=== PATIENT | female | born 1955 | race Caucasian/White ===

== ENCOUNTER 2020-10-24 11:47 | Outpatient (REF) | payer OTHER, SELFPAY ==
[2020-10-24 13:03] LABS: MANUAL DIFF FLAG NO
[2020-10-24 13:11] LABS: Basophils Absolute Auto 0.1 X10*3/uL (0.0-0.2); Basophils Percent Auto 0.6 % (0-2); Eosinophils Absolute Auto 0.1 X10*3/uL (0.0-0.4); Eosinophils Percent Auto 1.2 % (0-4); Hematocrit 45.7 % (37-47); Hemoglobin 14.8 g/dl (12.0-16.0); Imm Gran Abs Auto 0.04 X10*3/uL (0.00-0.03); Imm Gran Pct Auto 0.5 % (0.0-0.4); Lymphocytes Percent Auto 23.8 % (20-40); Mean Corpuscular HGB Conc 32.4 g/dl (31.0-35.0); Mean Corpuscular Hemoglobin 29.7 pg (27.0-33.0); Mean Corpuscular Volume 91.6 fL (80-98); Mean Platelet Volume 10.9 fL (9.4-12.3); Monocytes Absolute Auto 0.7 X10*3/uL (0.1-1.2); Monocytes Percent Auto 8.2 % (2-11); Neutrophils Absolute Auto 5.6 X10*3/uL (2.0-8.3); Neutrophils Percent Auto 65.7 % (45-73); Platelet Count 216 X10*3/uL (160-400); Red Blood Count 4.99 X10*6/uL (4.20-5.50); Red Cell Distribution Width 12.1 % (11.0-16.0); White Blood Count 8.5 X10*3/uL (4.8-10.8)
[2020-10-24 13:28] LABS: Alanine Aminotransferase 24 U/L (0-31); Albumin Level 4.8 g/dL (3.5-5.0); Alkaline Phosphatase 71 U/L (39-117); Anion Gap 16 (12-20); Aspartate Amino Transferase 32 U/L (5-31); Bilirubin Total 0.7 mg/dL (0.0-1.0); Blood Urea Nitrogen 12 mg/dL (9-16); C Reactive Protein 0.43 mg/dL (< or = 0.50); Carbon Dioxide 29 mmol/L (22-29); Chloride 101 mmol/L (96-108); Estimated Glomerular Filt Rate > 60; Glucose Random 108 mg/dL (60-115); Potassium 4.2 mmol/L (3.3-5.1); Sodium 142 mmol/L (135-145); Total Protein 7.4 g/dL (6.5-8.0)
[2020-10-25 17:32] LABS: Lyme Abs Screen <0.90 index
== END 2020-10-24 11:48 | disposition home or self-care (01) ==
LOC: HO.LAB 11:47
PROVIDERS: PCP Internal Medicine; Visit Provider Internal Medicine
DX: R21 Rash and other nonspecific skin eruption (principal); T14.8XXA Other injury of unspecified body region, initial encounter
CPT/HCPCS: 36415; 80053; 85025; 86140; 86617; 86618

== ENCOUNTER 2024-11-07 13:01 | Outpatient (AMB) | payer MEDICARE, OTHER, SELFPAY ==
--- NOTE | 2024-11-07 13:04 | A.OFFPC_ITS ---
Vital Signs 11/07/24 13:11 11/11/24 17:19 Height 5 ft 6 in Weight 93.894 kg BMI 33.4 BP 200/92 H 160/90 H Respiration 16 Pulse 63 Pulse Source Pulse Oximeter Temp 97.7 F Temp Source Temporal Artery Scan Pulse Oximetry (%) 99 Oxygen Delivery Method Room Air Intake Visit Reasons: Routine / Dr Wiseman - see comments Engine Assembler Required: No Accompanied by: Spouse Allergies No Known Allergies Allergy (Verified 11/07/24 13:05) Tobacco use date assessed: 11/07/24 Fall risk assessment: 1 Fall in past year Last assessed Fall Risk: 11/07/24 Dental Screening Dental Screen Date: 11/07/24 Did you have a dental visit in the last 12 months?: Yes Did you have a dental problem in the last 6 months where you did not have access to dental care?: No Was dental information given to patient?: No HPI HPI Comments History of Present Illness Details HTN- compliant with HCTZ and metoprolol. Initial BP 200/92. No longer checking at home. IBS-C- flares several times per year. Occ gets feve. Vomiting helps. Associated with diffuse abd pain. Does occasionally get diarrhea. Will last for several years. Follows with Dr. Zambrano. Due for colonoscopy History of disc herniation L4-L5. Did have radicular symptoms. Occ low back pain and will rest. No surgery, went to physical therapy. Does not wish to return at this time. Concerns: Fullness in her ears with decreased hearing. History of similar with prior pcp and reports symptoms were improved with change in season. No pain. Occasional vertigo relatively infrequent. Change of position. Feeling of off balance Health Maintenance: Last pap 2023. Dr Zhane Ahn UTD Due for colo ROS: General: No fevers, malaise, unintentional weight loss HEENT: No blurred vision, diplopia. No sore throat, nasal congestion, rhinorrhea, sinus pain, ear pain Cardiovascular: No chest pain, palpitations, or leg edema Respiratory: No shortness of breath, wheezing, cough GI: No abdominal pain, nausea, vomiting, diarrhea, constipation, melena, hematochezia : No dysuria, hematuria, increased urinary frequency, decreased urinary output MSK: No myalgia, back pain Neuro: No headaches, weakness, paresthesias Skin: No rashes or lesions EXAM: Constitutional - Awake and Alert, No apparent distress Eyes - PERRL Ears - cerumen impaction Cardiovascular - S1S2, RRR, No edema Respiratory - Normal lung expansion, Normal respiratory effort, No respiratory distress, CTA bilaterally Extremities - no calf tenderness bilaterally, no swelling Skin - Warm/Dry Neurological - Alert & oriented x3 Psychological - Appropriate affect [facility] Medical History (Updated 11/11/24 @ 17:19 by TIMO Parish) Irritable bowel syndrome with constipation HTN (hypertension) HLD (hyperlipidemia) Basal cell carcinoma Surgical History (Updated 11/07/24 @ 13:26 by TIMO Parish) S/P emergency section Status post skin graft Social History Housing: House Patient Tobacco Use Status: Never used Tobacco e-Cigarette/Vaping Use: Never Used service: No Current occupational status: retired Cognitive needs: No Hearing needs: No Vision needs: Yes (Reading) Questionnaire PHQ-9 Over the last 2 weeks, how often have you been bothered by any of the following problems? 1. Little interest or pleasure in doing things: not at all 2. Feeling down, depressed, or hopeless: not at all 3. Trouble falling or staying asleep, or sleeping too much: not at all 4. Feeling tired or having little energy: not at all 5. Poor appetite or overeating: not at all 6. Feeling bad about yourself - or that you are a failure or have let yourself or your family down: not at all 7. Trouble concentrating on things, such as reading the newspaper or watching television: not at all 8. Moving or speaking so slowly that other people could have noticed. Or the opposite - being so fidgety or restless that you have been moving around a lot more than usual: not at all 9. Thoughts that you would be better off or of hurting yourself in some way: not at all Total score: 0 Source: Developed by Drs. Ralph Fox, Elida Loja, Domingo Corley and colleagues, with an educational rose from [employer]. Thrive Questionnaire Date Thrive assessed: 11/07/24 I am a: Patient What is your living situation today?: I have a steady place to live Within the past 12 months, did the food you bought not last and you didn't have the money to get more?: Never true Within the past 12 months, did you worry whether your food would run out before you got money to buy more?: Never true Do you have trouble paying for medicines?: No Do you have trouble getting transportation to medical appointments?: No Do you have trouble paying your heating and electricity bill?: No Do you have trouble taking care of your child, family member or friend?: No Do you have trouble with day-to-day activities such as bathing, preparing meals, shopping, managing finances, etc.?: No Are you currently unemployed and looking for a job?: No Are you interested in more education?: No Please select the resources that you would like help with: None THRIVE Score: 0 JOHN-7 AMB Questionnaire JOHN-7 Date JOHN - 7 assessed: 11/07/24 Feeling nervous, anxious, or on edge: 0 = Not at all Not being able to stop or control worryin = Not at all Worrying too much about different things: 0 = Not at all Trouble relaxin = Not at all Being so restless that it is hard to sit still: 0 = Not at all Becoming easily annoyed or irritable: 0 = Not at all Feeling afraid as if something awful might happen: 0 = Not at all Total JOHN-7 score (0-4 normal; 5-9 mild; 10-14 moderate; 15-21 severe): 0 Source: Developed by Drs. Ralph Fox, Elida Loja, Domingo Corley and colleagues, with an educational rose from [employer]. Physical exam (Primary Care) Vital Signs: Last Vital Signs Temp 97.7 F 11/07/24 13:11 Pulse 63 11/07/24 13:11 Resp 16 11/07/24 13:11 BP 200/92 H 11/07/24 13:11 Pulse Ox 99 11/07/24 13:11 Oxygen Delivery Method Room Air 11/07/24 13:11 BMI result Body Mass Index 33.4 Tobacco/Smoking Status: Tobacco use Status Tobacco use date assessed 11/07/24 11/07/24 13:13 Patient Tobacco Use Status Never used Tobacco 11/07/24 13:13 e-Cigarette/Vaping Use Never Used 11/07/24 13:13 PHQ-9: PHQ-9 Score PHQ-9: Total score 0 11/07/24 14:10 Thrive Assessment: Date of Thrive Assessment Date Thrive assessed 11/07/24 11/07/24 14:10 Office Procedures Cerumen Removal From which ear canal was the cerumen removed: left Removal: irrigation, otoscope w/curette and cerumen loop/spoon Notes: patient tolerated procedure well [id number] Wax Removal by Spoon/Curette Coding Level of Care Code New Pt Level 4 (43912) Complex EM visit Add On G2211 Diagnoses HTN (hypertension) I10 HLD (hyperlipidemia) E78.5 Irritable bowel syndrome with constipation K58.1 Hearing loss due to cerumen impaction H61.20 CPT Codes Office Procedure - CPT: 22603-Ubz Wax Removal by Spoon/Curette ([id number]) Assessment & Plan Assessment & Plan (1) HTN (hypertension): Code(s): I10 - Essential (primary) hypertension Category: Medical Plan: White coat htn very evidnce. Improved on recheck. Continue current thearpies. Advised to take pressures at home. Contact the office with readings and will adjust therapies as needed (2) HLD (hyperlipidemia): Code(s): E78.5 - Hyperlipidemia, unspecified Category: Medical Plan: Lipid panel ordered. Continue crestor and low saturated and highly processed foods diet (3) Irritable bowel syndrome with constipation: Code(s): K58.1 - Irritable bowel syndrome with constipation Category: Medical Plan: Stable. Continue high fiber diet and fiver supplement. Stool softeners. Recommend exercise (4) Hearing loss due to cerumen impaction: Code(s): H61.20 - Impacted cerumen, unspecified ear Category: Medical Plan: Ear lavage and curette used to clear cerumen of left ear with success. Hearing much improved. Tolerated well, no complications Plan Follow up in 4 months. Referred for colo Orders: Orders Basic Metabolic Panel 11/07/24 E78.5 - Hyperlipidemia, unspecified, I10 - Essential (primary) hypertension, K58.1 - Irritable bowel syndrome with constipation Lipid Panel 11/07/24 E78.5 - Hyperlipidemia, unspecified, I10 - Essential (primary) hypertension, K58.1 - Irritable bowel syndrome with constipation Liver Panel 11/07/24 E78.5 - Hyperlipidemia, unspecified, I10 - Essential (primary) hypertension, K58.1 - Irritable bowel syndrome with constipation Vitamin D 25-OH Total 11/07/24 E78.5 - Hyperlipidemia, unspecified, I10 - Essential (primary) hypertension, K58.1 - Irritable bowel syndrome with constipation Complete Blood Count Auto Diff 11/07/24 E78.5 - Hyperlipidemia, unspecified, I10 - Essential (primary) hypertension, K58.1 - Irritable bowel syndrome with c onstipation Referrals Gastroenterology Referral Z12.11 - Encounter for screening for malignant neoplasm of colon
[2024-11-07 13:11] VITALS: BP 200/92; PULSE 63; RESP 16; TEMP 36.5; O2SAT 99; BMI 33.4
[2024-11-11 17:19] VITALS: BP 160/90
== END 2024-11-07 14:08 | disposition home or self-care (01) ==
LOC: HO.HMCHD 13:02
PROVIDERS: PCP Physician Assistant; Visit Provider Physician Assistant
DX: I10 Essential (primary) hypertension (principal); E78.5 Hyperlipidemia, unspecified; K58.1 Irritable bowel syndrome with constipation; H61.22 Impacted cerumen, left ear

== ENCOUNTER → 2024-11-07 13:01 | Outpatient (BNVA) | payer MEDICARE, OTHER, SELFPAY | PROVIDERS: PCP Internal Medicine; Visit Provider Physician Assistant | DX: I10 Essential (primary) hypertension (principal); E78.5 Hyperlipidemia, unspecified; K58.1 Irritable bowel syndrome with constipation; H61.22 Impacted cerumen, left ear | CPT/HCPCS: 69210; 99202 ==

== ENCOUNTER 2024-11-22 10:11 | Outpatient (REF) | payer MEDICARE, OTHER, SELFPAY ==
[2024-11-22 11:28] LABS: MANUAL DIFF FLAG NO
--- OUTSIDE RECORDS SUMMARY | 2024-11-22 11:40 | XMS_ITS | Encounter Summary ---
Author Organization [facility] Address [address] [place] [address] Care Team Providers Care Silk Worker Name Role Phone Shira Vargas RN MOBILE Primary Care Provider [phone] Reason for Visit * Reason Onset Date Comments MISSING INFORMATION 11/17/2024 Encounter Details Date Type Department Care Team (Late st Contact Info) Description 11/17/2024 Telephone Gastroenterology - [address] [place] [address] Marisol Zambrano MD [address] [place] [address] Social History Tobacco Use Types Packs/Day Years Used Date Smoking Tobacco: Never Assessed Comments Unknown Sex and Gender Information Value Date Recorded Sex Assigned at Not on file Legal Sex Female 10:18 AM EST Gender Identity Not on file Sexual Orientation Not on file documented as of this encounter Progress Notes * Mandy Willard - 11/17/2024 11:26 AM EDT Referral received from Eli Vargas office for colon--Missing medication list--Req faxed to pcp documented in this encounter Plan of Treatment Not on file documented as of this encounter Visit Diagnoses Not on filedocumented in this encounter Care Teams Silk Worker Relationship Specialty Start Date End Date [facility] [address] [facility] [address] [place] [address] PCP - General Family Medicine 11/17/24 11/17/24 documented as of this encounter
--- OUTSIDE RECORDS SUMMARY | 2024-11-22 11:40 | XMS_ITS | Clinical Summary ---
Author Organization [facility] [address] [facility] [address] Address [address] [place] [address] Phone Care Team Providers Care [place] Worker Name Role Phone Unavailable Primary Care Provider Unavailabl e Encounters Date Type Department Care Team Description 11/17/2024 Telephone Gastroenterology - [address] [facility] [address] [address] Marisol Zambrano MD from Last 3 Months Social History Tobacco Use Types Packs/Day Years Used Date Smoking Tobacco: Never Assessed Comments Unknown Sex and Gender Information Value Date Recorded Sex Assigned at Not on file Legal Sex Female 10:18 AM EST Gender Identity Not on file Sexual Orientation Not on file Plan of Treatment Health Maintenance Due Date Last Done Comments Breast Cancer Screening 1955 DTaP,Tdap,and Td Vaccines (1 - Tdap) 1976 Pneumococcal Vaccine: 50+ Ye ars (1 of 1 - PCV) 11/20/2007 Zoster Vaccines (1 of 2) 11/20/2007 Depression Screening 03/22/2024 Colorectal Cancer Screening: Colonoscopy 05/16/2024 Falls Risk Assessment 05/16/2024 Hepatitis C Screening 05/16/2024 Medicare Annual Wellness Visit 05/16/2024 Osteoporosis Screening (Bone Density Screening) 05/16/2024 Social Influencers of Health Screening 05/16/2024 COVID-19 Vaccine ( - 2023-2 5 season) 2024 Influenza Vaccine (#1) 2024 RSV Immunization Adult Patie nts (1 - 1-dose 75+ series) 2032 HIB Vaccines Aged Out No longer eligi ble based on patient's age to complete this topic HPV Vaccines Aged Out No longer eligi ble based on patient's age to complete this topic Hepatitis A Vaccines Aged Out No long er eligible based on patient's age to complete this topic Hepatitis B Vaccines Aged Out No long er eligible based on patient's age to complete this topic IPV Vaccines Aged Out No longer eligi ble based on patient's age to complete this topic MMR Vaccines Aged Out No longer eligi ble based on patient's age to complete this topic Meningococcal ACWY Vaccine Aged Out N o longer eligible based on patient's age to complete this topic Meningococcal B Vaccine Aged Out No l onger eligible based on patient's age to complete this topic RSV Immunization Patients Un owen 20 months Aged Out No longer eligible b ased on patient's age to complete this topic Varicella Vaccines Aged Out No longer eligible based on patient's age to complete this topic Insurance MEDICARE
[2024-11-22 11:43] LABS: Hematocrit 43.4 % (37.0-47.0); Hemoglobin 14.7 g/dl (12.0-16.0); Imm Gran Abs Auto 0.02 X10*3/uL (0.00-0.03); Imm Gran Pct Auto 0.3 % (0.0-0.4); Lymphocytes Absolute Auto 2.3 X10*3/uL (1.2-4.9); Mean Corpuscular HGB Conc 33.9 g/dl (31.0-35.0); Mean Corpuscular Hemoglobin 31.2 pg (27.0-33.0); Mean Corpuscular Volume 92.1 fL (80.0-98.0); NRBC Abs Auto 0.000 X10*3/uL (0.0-0.012); NRBC Pct Auto 0.0 /100WBC (0.0-0.2); Platelet Count 198 X10*3/uL (160-400); Red Blood Count 4.71 X10*6/uL (4.20-5.50); White Blood Count 7.2 X10*3/uL (4.8-10.8)
[2024-11-22 12:40] LABS: Alanine Aminotransferase 32 U/L (0-31); Albumin Level 4.7 g/dL (3.5-5.0); Alkaline Phosphatase 59 U/L (39-117); Anion Gap 14 (12-20); Aspartate Amino Transferase 45 U/L (5-31); Blood Urea Nitrogen 12 mg/dL (9-16); Calcium 9.5 mg/dL (8.4-10.2); Carbon Dioxide 30 mmol/L (22-29); Chloride 101 mmol/L (96-108); Cholesterol 169 mg/dL (<200); Estimated Glomerular Filt Rate > 60; HDL Cholesterol 43 mg/dL (>40); Potassium 4.0 mmol/L (3.3-5.1); Sodium 141 mmol/L (135-145); Total Protein 7.2 g/dL (6.5-8.0); Triglycerides 168 mg/dL (<150)
== END 2024-11-22 10:12 | disposition home or self-care (01) ==
LOC: HO.WFDLDS 10:11
PROVIDERS: Visit Provider Physician Assistant
DX: K58.1 Irritable bowel syndrome with constipation (principal); E78.5 Hyperlipidemia, unspecified; I10 Essential (primary) hypertension; Z13.21 Encounter for screening for nutritional disorder
CPT/HCPCS: 36415; 80048; 80061; 80076; 82306; 85025